=== PATIENT | male | born 1985 | race Caucasian/White ===

== ENCOUNTER 2018-01-30 11:11 | Observation (INO) | payer MEDICAID ==
[~2018-01-30] VITALS: Ht 180.3 cm; Wt 80.5 kg
--- NOTE | ~2018-01-30 | CN ---
PATIENT NAME:SOMMER MORE MEDICAL RECORD: [id number] : 89 LOCATION:[id number] ADMIT DATE: 01/30/18 ACCOUNT: [id number] CONSULTING PHYSICIAN: CYNTHIA DHILLON MD REFERRING PHYSICIAN: FAITH AGUIAR MD DATE OF CONSULTATION: 01/31/2018 IDENTIFYING DATA: The patient is 32 years old and he is admitted to the hospital on a voluntary basis secondary to an overdose. CHIEF COMPLAINT: Depression. HISTORY OF PRESENT ILLNESS: The patient has a great deal of stress. He was diagnosed with HIV 6 months ago. He has had ongoing problems with alcoholism and apparently he was drinking last night, got to thinking about his situation and took an overdose of hydroxyzine. Apparently, he called his ex- who initiated the response to the emergency personnel. The patient endorses numerous neurovegetative depressive symptoms. He says he does not want to hurt himself anymore. He does not want to go to inpatient psychiatric care or inpatient detox treatment. MENTAL STATUS EXAMINATION: The patient is fully oriented. He is cooperative. He has a depressed mood and has no thoughts of harming himself or others. His memory, concentration, and abstraction abilities are intact. ASSESSMENT: 1. Major depression. 2. Alcohol dependence. PLAN: The patient in my view needs inpatient detoxification from alcohol at a minimum. He was hospitalized in the intensive care unit in October because he was in delirium tremens. He minimizes this as he has not been drinking as much and does not want to go into the hospital for either mental health treatment or substance abuse treatment. At this point, I think he is making a mistake, but I do not see that the circumstances rise to the level of requiring a court order. TRANSINT:[id number] Voice Confirmation ID: [id number] DOCUMENT ID: [id number] CYNTHIA DHILLON MD at 1921 CC: [id number] DICTATION DATE: 01/31/18 1402 DIETARY SERVICES MANAGER: 01/31/18 1416 ADM IN [facility] [address] [place] [address]
[2018-01-30 11:44] LABS: HEMOGLOBIN 11.7 g/dL (13.5-17.5); MCH 32.6 pg (26.0-34.0); MCHC 33.4 g/dL (31.0-37.0); MCV 97.5 fL (80.0-100.0); MEAN PLATELET VOLUME 9.5 fL (7.4-10.4); PLATELET COUNT 186 10x3/uL (130-400); RBC 3.59 10x6/uL (4.20-6.10)
[2018-01-30 12:01] LABS: ALBUMIN 3.6 g/dL (3.4-5.0); ALKALINE PHOSPHATASE 60 U/L (46-116); ALT (SGPT) 31 U/L (10-68); BILIRUBIN - TOTAL 0.38 mg/dL (0.2-1.3); CALC OSMOLALITY 281 mosm/kg (275-300); CALCIUM 8.8 mg/dL (8.5-10.1); CARBON DIOXIDE 26.5 mmol/L (21.0-32.0); CHLORIDE - SERUM 101 mmol/L (98-107); CREATININE - SERUM 1.1 mg/dL (0.6-1.3); GLUCOSE 108 mg/dL (74-106); POTASSIUM - SERUM 3.7 mmol/L (3.5-5.1); PROTEIN - SERUM 7.8 g/dL (6.4-8.2); SODIUM 141 mmol/L (136-145); UREA NITROGEN 13 mg/dL (7-18); eGFR NON AFRICAN AMERICAN 83 mL/min (90-120)
[2018-01-30 12:46] LABS: UDS - AMPHET NEGATIVE QUAL (NEGATIVE); UDS - BARB NEGATIVE QUAL (NEGATIVE); UDS - BENZO NEGATIVE QUAL (NEGATIVE); UDS - COCAINE NEGATIVE QUAL (NEGATIVE); UDS - OPIATE NEGATIVE QUAL (NEGATIVE); UDS - PCP NEGATIVE QUAL (NEGATIVE); UDS - THC NEGATIVE QUAL (NEGATIVE)
[2018-01-30 12:51] LABS: APPEARANCE CLEAR (CLEAR); BACTERIA FEW /hpf (NONE SEEN); BILIRUBIN NEGATIVE (NEGATIVE); COLOR DK YELLOW (YELLOW); EPITHELIAL CELLS 0-5 /hpf (0-5); GLUCOSE NEGATIVE (NEGATIVE); KETONE NEGATIVE (NEGATIVE); MUCUS <1+ /lpf (NONE SEEN); NITRITE NEGATIVE (NEGATIVE); PROTEIN NEGATIVE (NEGATIVE); RED CELLS - URINE RARE /hpf (0-5); SPECIFIC GRAVITY 1.025 (1.005-1.020); UROBILINOGEN NORMAL (NORMAL); WHITE CELLS - URINE OCC /hpf (0-5)
[2018-01-30 13:01] LABS: EOSINOPHILS 1 % (0-7); LYMPHOCYTES 65 % (15-50); MONOCYTES 13 % (2-11); NEUTROPHILS 17 % (40-80); PLATELET ESTIMATE NORMAL
[2018-01-30 22:00] VITALS: BP 136/80
[2018-01-31] VITALS (12 sets, daily range): BP systolic 110–143; BP diastolic 72–100; Ht 180.3 cm; Wt 80.5 kg
[2018-01-31 11:15] LABS: BASOPHILS 0.2 % (0-2); EOSINOPHILS 0.4 % (0-7); HEMATOCRIT 32.8 % (42.0-54.0); HEMOGLOBIN 11.1 g/dL (13.5-17.5); MCH 32.7 pg (26.0-34.0); MCHC 33.8 g/dL (31.0-37.0); MCV 96.8 fL (80.0-100.0); MEAN PLATELET VOLUME 10.1 fL (7.4-10.4); MONOCYTES 10.1 % (2-11); NEUTROPHILS 62.3 % (40-80); PLATELET COUNT 156 10x3/uL (130-400); RBC 3.39 10x6/uL (4.20-6.10); RDW 13.7 % (11.5-14.5)
[2018-01-31 11:27] LABS: WBC 4.7 10x3/uL (4.8-10.8)
[2018-01-31 11:41] LABS: ALBUMIN 3.4 g/dL (3.4-5.0); ALKALINE PHOSPHATASE 60 U/L (46-116); ALT (SGPT) 30 U/L (10-68); CALC OSMOLALITY 276 mosm/kg (275-300); CALCIUM 9.1 mg/dL (8.5-10.1); CARBON DIOXIDE 29.6 mmol/L (21.0-32.0); CHLORIDE - SERUM 97 mmol/L (98-107); GLUCOSE 142 mg/dL (74-106); POTASSIUM - SERUM 3.4 mmol/L (3.5-5.1); PROTEIN - SERUM 7.4 g/dL (6.4-8.2); SODIUM 137 mmol/L (136-145); UREA NITROGEN 15 mg/dL (7-18); eGFR NON AFRICAN AMERICAN > 90 mL/min (90-120)
[2018-01-31] MEDS ORDERED: ATARAX 25 MG TA25 MG (14:33)
[2018-01-31] MEDS ORDERED: ABACAVIR PO (14:36)
[2018-01-31] MEDS ORDERED: ZIDOVUDINE PO (14:36)
[2018-01-31] MEDS ORDERED: LAMIVUDINE PO (14:36)
[2018-01-31] MEDS ORDERED: METOPROLOL TART25 MG PO (14:37)
[2018-02-01] VITALS (11 sets, daily range): BP systolic 116–146; BP diastolic 71–98
[2018-02-01 05:51] LABS: BASOPHILS 0.2 % (0-2); HEMATOCRIT 33.3 % (42.0-54.0); HEMOGLOBIN 11.1 g/dL (13.5-17.5); IMMATURE GRANULOCYTES 0.2 % (0-5); LYMPHOCYTES 37.4 % (15-50); MCH 32.3 pg (26.0-34.0); MCHC 33.3 g/dL (31.0-37.0); MCV 96.8 fL (80.0-100.0); MONOCYTES 10.8 % (2-11); NEUTROPHILS 50.4 % (40-80); PLATELET COUNT 152 10x3/uL (130-400); RBC 3.44 10x6/uL (4.20-6.10); RDW 13.5 % (11.5-14.5); WBC 4.9 10x3/uL (4.8-10.8)
[2018-02-01 06:02] LABS: CALC OSMOLALITY 274 mosm/kg (275-300); CALCIUM 8.8 mg/dL (8.5-10.1); CARBON DIOXIDE 27.9 mmol/L (21.0-32.0); CHLORIDE - SERUM 101 mmol/L (98-107); CREATININE - SERUM 0.9 mg/dL (0.6-1.3); GLUCOSE 90 mg/dL (74-106); POTASSIUM - SERUM 3.5 mmol/L (3.5-5.1); SODIUM 138 mmol/L (136-145); UREA NITROGEN 10 mg/dL (7-18); eGFR NON AFRICAN AMERICAN > 90 mL/min (90-120)
== END 2018-02-01 14:35 | disposition home or self-care (01) ==
LOC: D.ER 11:11 → D.ICU 13:29 → OBSVTIME 13:29 → D.EDHOLD 13:29 → D.ICU 01-31 12:43
PROVIDERS: Emergency Medicine; Internal Medicine Nephrology
DX: T43.592A Poisoning by other antipsychotics and neuroleptics, intentional self-harm, initial encounter (principal); F32.9 Major depressive disorder, single episode, unspecified; F10.239 Alcohol dependence with withdrawal, unspecified; F10.229 Alcohol dependence with intoxication, unspecified; T51.0X2A Toxic effect of ethanol, intentional self-harm, initial encounter; Y90.7 Blood alcohol level of 200-239 mg/100 ml; D64.9 Anemia, unspecified; B20 Human immunodeficiency virus [HIV] disease

== ENCOUNTER 2018-03-15 01:54 | Emergency (ER) | payer MEDICAID ==
[2018-01-31 14:47] VITALS: BMI 24.7
[~2018-03-15 01:54] MED LIST: ABACAVIR PO; ATARAX 25 MG TA25 MG; LAMIVUDINE PO; METOPROLOL TART25 MG PO; ZIDOVUDINE PO
[2018-03-15 02:40] LABS: BASOPHILS 0 % (0-2); EOSINOPHILS 0.2 % (0-7); HEMATOCRIT 36.7 % (42.0-54.0); HEMOGLOBIN 12.8 g/dL (13.5-17.5); IMMATURE GRANULOCYTES 0.3 % (0-5); LYMPHOCYTES 16.4 % (15-50); MCH 32.7 pg (26.0-34.0); MCHC 34.9 g/dL (31.0-37.0); MCV 93.9 fL (80.0-100.0); MEAN PLATELET VOLUME 11.2 fL (7.4-10.4); MONOCYTES 13.9 % (2-11); NEUTROPHILS 69.2 % (40-80); RBC 3.91 10x6/uL (4.20-6.10); RDW 13.2 % (11.5-14.5); WBC 6.4 10x3/uL (4.8-10.8)
[2018-03-15 02:41] LABS: PLATELET COUNT 65 10x3/uL (130-400)
[2018-03-15 02:59] LABS: ALKALINE PHOSPHATASE 64 U/L (46-116); ALT (SGPT) 57 U/L (10-68); BILIRUBIN - TOTAL 0.69 mg/dL (0.2-1.3); CALC OSMOLALITY 269 mosm/kg (275-300); CALCIUM 9.6 mg/dL (8.5-10.1); CARBON DIOXIDE 25.9 mmol/L (21.0-32.0); CHLORIDE - SERUM 94 mmol/L (98-107); GLUCOSE 143 mg/dL (74-106); MAGNESIUM - SERUM 1.5 mg/dL (1.8-2.4); PROTEIN - SERUM 8.5 g/dL (6.4-8.2); SODIUM 134 mmol/L (136-145); UREA NITROGEN 12 mg/dL (7-18); eGFR NON AFRICAN AMERICAN > 90 mL/min (90-120)
[2018-03-15 03:00] LABS: POTASSIUM - SERUM 2.9 mmol/L (3.5-5.1)
[2018-03-15 03:28] LABS: PLATELET ESTIMATE DECREASED; PLATELET MORPHOLOGY NORMAL PLT MORPH
[2018-03-15 03:57] LABS: UDS - AMPHET NEGATIVE QUAL (NEGATIVE); UDS - BARB NEGATIVE QUAL (NEGATIVE); UDS - BENZO NEGATIVE QUAL (NEGATIVE); UDS - COCAINE NEGATIVE QUAL (NEGATIVE); UDS - OPIATE NEGATIVE QUAL (NEGATIVE); UDS - PCP NEGATIVE QUAL (NEGATIVE); UDS - THC NEGATIVE QUAL (NEGATIVE)
== END 2018-03-15 07:39 | disposition home or self-care (01) ==
LOC: D.ER 01:54
PROVIDERS: Family Medicine
DX: R56.9 Unspecified convulsions (principal); S02.401A Maxillary fracture, unspecified side, initial encounter for closed fracture; X58.XXXA Exposure to other specified factors, initial encounter; Y93.89 Activity, other specified; Y92.019 Unspecified place in single-family (private) house as the place of occurrence of the external cause; B20 Human immunodeficiency virus [HIV] disease

== ENCOUNTER 2018-03-29 20:40 | Emergency (ER) | payer MEDICAID ==
[2018-01-31 14:47] VITALS: BMI 24.7
[2018-03-29 22:24] LABS: BASOPHILS 0.5 % (0-2); EOSINOPHILS 1.6 % (0-7); HEMATOCRIT 36.2 % (42.0-54.0); HEMOGLOBIN 12.3 g/dL (13.5-17.5); LYMPHOCYTES 55.9 % (15-50); MCH 32.5 pg (26.0-34.0); MCV 95.8 fL (80.0-100.0); MEAN PLATELET VOLUME 9.7 fL (7.4-10.4); MONOCYTES 9.3 % (2-11); NEUTROPHILS 32.7 % (40-80); RBC 3.78 10x6/uL (4.20-6.10); RDW 14.3 % (11.5-14.5); WBC 5.5 10x3/uL (4.8-10.8)
[2018-03-29 22:24] LABS: APPEARANCE CLEAR (CLEAR); BILIRUBIN NEGATIVE (NEGATIVE); COLOR YELLOW (YELLOW); GLUCOSE NEGATIVE (NEGATIVE); KETONE NEGATIVE (NEGATIVE); NITRITE NEGATIVE (NEGATIVE); PROTEIN NEGATIVE (NEGATIVE); SPECIFIC GRAVITY 1.005 (1.005-1.020); UROBILINOGEN NORMAL (NORMAL)
[2018-03-29 22:26] LABS: PLATELET COUNT 135 10x3/uL (130-400)
[2018-03-29 22:36] LABS: UDS - AMPHET NEGATIVE QUAL (NEGATIVE); UDS - BARB NEGATIVE QUAL (NEGATIVE); UDS - BENZO POSITIVE QUAL (NEGATIVE); UDS - COCAINE NEGATIVE QUAL (NEGATIVE); UDS - OPIATE NEGATIVE QUAL (NEGATIVE); UDS - PCP NEGATIVE QUAL (NEGATIVE); UDS - THC NEGATIVE QUAL (NEGATIVE)
[2018-03-29 22:36] LABS: ALBUMIN 3.8 g/dL (3.4-5.0); ALKALINE PHOSPHATASE 85 U/L (46-116); ALT (SGPT) 40 U/L (10-68); CALC OSMOLALITY 288 mosm/kg (275-300); CALCIUM 9.1 mg/dL (8.5-10.1); CARBON DIOXIDE 30.7 mmol/L (21.0-32.0); CHLORIDE - SERUM 106 mmol/L (98-107); CREATININE - SERUM 1.2 mg/dL (0.6-1.3); POTASSIUM - SERUM 3.8 mmol/L (3.5-5.1); PROTEIN - SERUM 8.7 g/dL (6.4-8.2); SODIUM 146 mmol/L (136-145); UREA NITROGEN 7 mg/dL (7-18); eGFR NON AFRICAN AMERICAN 75 mL/min (90-120)
[2018-03-29 22:44] LABS: GLUCOSE 95 mg/dL (74-106)
== END 2018-03-30 11:39 | disposition other institution (70) ==
LOC: D.ER 20:40
PROVIDERS: Family Medicine
DX: F10.129 Alcohol abuse with intoxication, unspecified (principal); F33.9 Major depressive disorder, recurrent, unspecified; R45.851 Suicidal ideations; F17.200 Nicotine dependence, unspecified, uncomplicated

== ENCOUNTER 2018-09-25 09:07 | Emergency (ER) | payer SELFPAY ==
[2018-09-25 09:17] VITALS: Ht 180.3 cm
[2018-09-25 10:12] LABS: APPEARANCE CLEAR (CLEAR); BILIRUBIN NEGATIVE (NEGATIVE); COLOR STRAW (YELLOW); GLUCOSE NEGATIVE (NEGATIVE); KETONE NEGATIVE (NEGATIVE); NITRITE NEGATIVE (NEGATIVE); PROTEIN NEGATIVE (NEGATIVE); SPECIFIC GRAVITY 1.005 (1.005-1.020); UROBILINOGEN NORMAL (NORMAL)
[2018-09-25 10:14] LABS: BASOPHILS 0 % (0-2); EOSINOPHILS 1.1 % (0-7); HEMATOCRIT 38.3 % (42.0-54.0); HEMOGLOBIN 13.1 g/dL (13.5-17.5); IMMATURE GRANULOCYTES 0.1 % (0-5); LYMPHOCYTES 33.5 % (15-50); MCH 32.8 pg (26.0-34.0); MCHC 34.2 g/dL (31.0-37.0); MEAN PLATELET VOLUME 10.3 fL (7.4-10.4); MONOCYTES 6.9 % (2-11); NEUTROPHILS 58.4 % (40-80); RBC 3.99 10x6/uL (4.20-6.10); RDW 13.8 % (11.5-14.5); WBC 7.1 10x3/uL (4.8-10.8)
[2018-09-25 10:18] LABS: ALBUMIN 3.9 g/dL (3.4-5.0); ALKALINE PHOSPHATASE 57 U/L (46-116); ALT (SGPT) 33 U/L (10-68); BILIRUBIN - TOTAL 0.18 mg/dL (0.2-1.3); CALC OSMOLALITY 287 mosm/kg (275-300); CALCIUM 8.5 mg/dL (8.5-10.1); CARBON DIOXIDE 29.4 mmol/L (21.0-32.0); CHLORIDE - SERUM 107 mmol/L (98-107); GLUCOSE 105 mg/dL (74-106); POTASSIUM - SERUM 4.1 mmol/L (3.5-5.1); PROTEIN - SERUM 8.3 g/dL (6.4-8.2); SODIUM 146 mmol/L (136-145); UREA NITROGEN 4 mg/dL (7-18); eGFR NON AFRICAN AMERICAN > 90 mL/min (90-120)
[2018-09-25 10:19] LABS: MAGNESIUM - SERUM 1.9 mg/dL (1.8-2.4)
[2018-09-25 10:20] LABS: UDS - AMPHET NEGATIVE QUAL (NEGATIVE); UDS - BARB NEGATIVE QUAL (NEGATIVE); UDS - BENZO NEGATIVE QUAL (NEGATIVE); UDS - COCAINE NEGATIVE QUAL (NEGATIVE); UDS - OPIATE NEGATIVE QUAL (NEGATIVE); UDS - PCP NEGATIVE QUAL (NEGATIVE); UDS - THC NEGATIVE QUAL (NEGATIVE)
[2018-09-25 10:21] LABS: PLATELET COUNT 177 10x3/uL (130-400)
[2018-09-25 14:10] VITALS: BP 152/092
== END 2018-09-25 14:11 | disposition home or self-care (01) ==
LOC: D.ER 09:07
PROVIDERS: Family Medicine
DX: F10.129 Alcohol abuse with intoxication, unspecified (principal); F10.10 Alcohol abuse, uncomplicated